=== PATIENT | female | born 1990 | race African-American/Black ===

== ENCOUNTER 2021-12-02 20:35 | Emergency (ER) | payer MEDICAID ==
[~2021-12-02] VITALS: Ht 170.2 cm; Wt 74.0 kg
[2021-12-02] MEDS ORDERED: ACETAMINOPHEN 500 MG TABLET PO ONE (22:45)
[2021-12-02 23:01] VITALS: BP 127/67
== END 2021-12-02 23:15 | disposition home or self-care (01) ==
LOC: EMS 20:38
DX: G89.18 Other acute postprocedural pain (principal)
CPT/HCPCS: 99283